=== PATIENT | female | born 1965 | race Caucasian/White ===

== ENCOUNTER 2016-05-24 08:22 | Day surgery (SDC) | payer OTHER ==
[2016-05-24] MEDS ORDERED: LACTATED RINGERS 1,000 ML IV ONE ×2 (09:10→09:49)
[2016-05-24] MEDS ORDERED: fentaNYL 250 MCG/5 ML VIAL IVP ONE (10:00)
[2016-05-24] MEDS ORDERED: MIDAZOLAM 2 MG/2 ML VIAL IVP ONE (10:00)
== END 2016-05-24 08:23 | disposition home or self-care (01) ==
PROC: 0DJD8ZZ Inspection of Lower Intestinal Tract, Via Natural or Artificial Opening Endoscopic (ICD-10-PCS; principal; 2016-05-24 09:30)
DX: Z12.11 Encounter for screening for malignant neoplasm of colon (principal); K64.8 Other hemorrhoids
CPT/HCPCS: 45378; J3010; J7120

== ENCOUNTER 2018-11-28 14:59 | Outpatient (CLI) | payer OTHER ==
[2018-11-28 15:35] VITALS: BP 110/60
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
== END 2018-11-28 15:00 | disposition home or self-care (01) ==
LOC: SC 14:59
PROVIDERS: ATTEND Internal Medicine Pulmonary Disease
DX: R06.83 Snoring (principal); R06.81 Apnea, not elsewhere classified; G47.8 Other sleep disorders; G47.10 Hypersomnia, unspecified
CPT/HCPCS: 99203; 99212

== ENCOUNTER 2019-01-03 20:24 | Outpatient (CLI) | payer OTHER | END 2019-01-03 20:25 | disposition home or self-care (01) | LOC: SC 20:24 | PROVIDERS: ATTEND Internal Medicine Pulmonary Disease | DX: G47.33 Obstructive sleep apnea (adult) (pediatric) (principal) | CPT/HCPCS: 95811 ==

== ENCOUNTER 2019-01-23 15:01 | Outpatient (CLI) | payer OTHER ==
--- NOTE | 2019-01-23 15:23 | SLEEP CARE CONSULTATION ---
Information from patient questionnaire entered by Petra Vasquez. I have reviewed and concur with the information entered by Petra Vasquez. This document represents the service I personally performed and the decisions made by me, Nicole Hay MD, [facility]. History of Present Illness Initial [place] Sleepiness Scale score: 16 Current [place] Sleepiness Scale score: 15 Additional HPI information: HPI: returned for follow up of the sleep study she had on 01/03/19. The polysomnography shows the following: The quality of the study is good. CPAP was initiated 190.2 minutes into the study and titrated up from 4 cmH2O and titrated up to CPAP at 8 cmH2O. DIAGNOSTIC: The patient had slightly reduced sleep efficiency due to frequent awakenings after the sleep onset. The sleep architecture was abnormal for sleep fragmentation and lack of REM and slow wave sleep (N3). Respiratory monitoring showed extremely severe obstructive sleep apnea-hypopnea (AHI = 112.2) associated with frequent arousals, oxyhemoglobin desaturation and mild hypoxia (jc oxygen saturation of 84%). The respiratory events occurred independently of sleep stage and body position. Snoring was loud in intensity. There was mild periodic limb movement of sleep. THERAPEUTIC: CPAP at 7 cmH2O appeared to be optimal (AHI of 0 per hour on the pressure). There was supine REM sleep on the pressure. Oxygen saturation was normal. Lower CPAP settings allowed a few residual respiratory events. The patient appeared to have tolerated positive airway pressure therapy very well. The patients sleep efficiency was normal. The sleep architecture was significant for REM rebound. There was no significant periodic limb movement of sleep. Cardiac rhythm was normal sinus rhythm without significant arrhythmia. No abnormal behavior (parasomnia) observed during the night. The patient was informed of these findings. I explained to her the pathophysiology behind obstructive sleep apnea. We then spent quite a bit of time discussing different treatment options. For mild obstructive sleep apnea, surgery and oral appliance are alternatives to nasal CPAP therapy but in moderate or severe cases, nasal CPAP is the most effective and reliable treatment. After some discussion, she opted to go with the nasal CPAP therapy. I explained to her how CPAP machine works and what to expect when using the machine. She is actually quite familiar with the treatment because her uses a CPAP. Allergies and Home Medications Drug allergies reviewed: Yes Home medication list reviewed: Yes Review of Systems Review of systems same as previous: Yes Physical Exam Height: 5 ft 6 in Weight: 260 lb Body Mass Index: 41.9 BMI Classification: Obesity Class 3 Impression and Plan IMPRESSION: 1. Obstructive Sleep Apnea-Hypopnea Syndrome, extremely severe, associated with mild hypoxemia and sleep fragmentation. Obviously this is the cause of the patients symptoms of unrefreshed sleep, and excessive daytime sleepiness. As mentioned above, the patient will be started on autoCPAP set at 5 - 8 cmH2O. I anticipate good treatment compliance. PLAN: 1. Prescription made for an autoCPAP with heated humidifier and related supplies. 2. Attempt to lose weight. 3. Be careful when driving until her sleepiness resolves completely on nasal CPAP therapy. 4. Return in one month for follow up. I will assess her response and compliance at that time. I spent 100% of this 20 minute visit face to face with the patient with greater than 50% of this was spent time counseling the patient and coordination of care.
== END 2019-01-23 15:02 | disposition home or self-care (01) ==
LOC: SC 15:01
PROVIDERS: ATTEND Internal Medicine Pulmonary Disease
DX: G47.33 Obstructive sleep apnea (adult) (pediatric) (principal); E66.9 Obesity, unspecified; Z68.41 Body mass index [BMI] 40.0-44.9, adult
CPT/HCPCS: 99212; 99213

== ENCOUNTER 2019-05-02 13:29 | Outpatient (CLI) | payer OTHER ==
[2019-05-02 14:27] VITALS: BP 130/78
--- NOTE | 2019-05-02 14:27 | SLEEP CARE CONSULTATION ---
Information from patient questionnaire entered by Dona Castellanos. I have reviewed and concur with the information entered by Dona Castellanos. This document represents the service I personally performed and the decisions made by me, Veena Paredes, RN, MSN, PLATE COLORER. History of Present Illness Previous diagnosis: Extremely Severe, Obstructive Sleep Apnea-Hypopnea Syndrome AHI: 112.2 Reason for follow up: first compliance Equipment type: CPAP Equipment obtained from: [email or web address] Mask style: Nasal (Dreamwear nasal) Mask brand: Respironics Backup mask available: Yes Last cushion change: a month ago CPAP Compliance Data - Data Reviewed with Patient Average duration of nightly device use: 6.45 Compliance rate %: 100 Current pressure setting (cmH2O): 5-8 Humidity settin Heated hose settin Average residual AHI: 2.2 Average large leak: 0 Subjective Patient concerns: reports: mask leak noise (just initially or sometimes on her side ). denies: aerophagia, mask discomfort, air blowing in eyes, condensation in mask/hose, nasal congestion, dry mouth, nose, throat, epistaxis, other Observed to snore while using device: No Current pressure setting perceived as: comfortable On therapy, patient: reports: sleeping better, awakening more refreshed, being more awake and alert during the day, more rested overall. denies: drowsiness while driving Initial [place] Sleepiness Scale score: 16 Current [place] Sleepiness Scale score: 5 Allergies and Home Medications Known drug allergies: Yes Home medication list reviewed: Yes ( no changes) Allergy and home medication list: atenolol 50mg daily Atprvastatin 10mg daily Review of Systems Review of systems same as previous: Yes Physical Exam Blood Pressure: 130/78 Cuff size: long Heart Rate: 71 O2 Saturation: 97 Height: 5 ft 6 in ( ) Weight: 270 lb 6.4 oz Body Mass Index: 43.6 BMI Classification: Obesity Class 3 Impression and Plan 1. Obstructive Sleep Apnea-Hypopnea Syndrome, extremely severe, with good treatment compliance and good apnea control. On CPAP therapy, the patient has better sleep quality and is more rested overall. To reduce mask leaks while sleeping on her side, I showed her a CPAP pillow. This and other styles can be bought online. I also discussed the importance of regularly changing CPAP mask cushion to maintain seal of mask. In addition, I discussed the importance of changing her filter in response to her questions. Currently patients BMI is 41.9 obesity class. Obesity increases the risk of apnea, CPAP pressure requirements and overall health risks especially cardiovascular and diabetes. Thus patient is advised to lose weight. Weight loss can be done with reducing portion size, refined foods and balancing content with vegetables, fruit and protein. A diet consultation can be helpful in achieving optimal weight loss goals. The BMI chart was reviewed. Patient encouraged to discuss their weight loss goals with their PCP and consider a referral to a tool lapper hand. The patient's auto CPAP pressure should accommodate for future weight loss. Symptoms to report for additional pressure adjustment discussed. Patient's apnea severity and rationale for treatment to reduce apnea, improve sleep quality and reduce cardiovascular and cerebrovascular events was reviewed. I also reviewed the benefit of consistent device use of CPAP for hypertension. * Continue CPAP pressure at 5-8 cmH2O * consider CPAP pillow * Change mask cushions more frequently. * Notify me if snoring with mask or feeling that the pressure is too much or too little * Attempt to lose weight * Call this office if any problems using CPAP * Return for follow up in 3 months , or sooner if concerns arise Time Spent with Patient (minutes): 30 I spent 100% of this visit face to face with the patient with greater than 50% of this was spent time counseling the patient and coordination of care.
== END 2019-05-02 13:30 | disposition home or self-care (01) ==
LOC: SC 13:29
PROVIDERS: ATTEND Nurse Practitioner Family
DX: G47.33 Obstructive sleep apnea (adult) (pediatric) (principal); E66.9 Obesity, unspecified; Z68.41 Body mass index [BMI] 40.0-44.9, adult
CPT/HCPCS: 99212; 99214

== ENCOUNTER 2019-10-31 15:14 | Outpatient (CLI) | payer OTHER ==
[2019-10-31 16:12] VITALS: BP 130/90
--- NOTE | 2019-10-31 16:12 | SLEEP CARE CONSULTATION ---
Information from patient questionnaire entered by Petra Vasquez. I have reviewed and concur with the information entered by Petra Vasquez. This document represents the service I personally performed and the decisions made by me, Veena Paredes, RN, MSN, ENERGY ENGINEER. History of Present Illness Service Date and Time: 10/31/2019 1514 Previous diagnosis: Extremely Severe, Obstructive Sleep Apnea-Hypopnea Syndrome AHI: 112.2 Reason for follow up: other (5 month) Equipment type: CPAP Equipment obtained from: [facility] (getting supplies as needed) Mask style: Nasal (Dreamwear) Backup mask available: Yes (old mask ) Last cushion change: yesterday Prior sleep studies: Yes Year and Where: [facility] 2018 Type of Sleep Study: Polysomnography CPAP Compliance Data - Data Reviewed with Patient Average duration of nightly device use: 7h 1m Compliance rate %: 100 Current pressure setting (cmH2O): 5-8 Humidity settin Heated hose settin Average residual AHI: 1.0 (90% pressure average 8cmh20) Average large leak: 2m 19s Subjective Patient concerns: denies: aerophagia, mask discomfort, air blowing in eyes, mask leak noise, condensation in mask/hose, nasal congestion, dry mouth, nose, throat, epistaxis, other Observed to snore while using device: No Current pressure setting perceived as: comfortable On therapy, patient: reports: sleeping better, awakening more refreshed, being more awake and alert during the day, more rested overall. denies: drowsiness while driving Initial [place] Sleepiness Scale score: 16 Current [place] Sleepiness Scale score: 6 Allergies and Home Medications Known drug allergies: No Home medication list reviewed: No (no changes) Review of Systems Review of systems same as previous: Yes Physical Exam Blood Pressure: 130/90 (has monitor but does not monitor ) Cuff size: long Heart Rate: 66 O2 Saturation: 96 Height: 5 ft 6 in Weight: 264 lb 1.6 oz Weight change since last visit: lost 6 pounds Body Mass Index: 42.6 BMI Classification: Morbidly Obese Impression and Plan 1. Obstructive Sleep Apnea-Hypopnea Syndrome, extremely severe, with good treatment compliance and good apnea control. On CPAP therapy, the patient has better sleep quality and is more rested overall. Patient very pleased with benefit of treatment. She has started to lose weight. Currently patients BMI is 42.6 obesity class Morbidly Obese. Obesity increases the risk of apnea, CPAP pressure requirements and overall health risks especially cardiovascular and diabetes. Thus patient is advised to continue to lose weight. A diet consultation can be helpful in achieving optimal weight loss goals. The BMI chart was reviewed. Patient encouraged to discuss their weight loss goals with their PCP and consider a referral to a display maker. The patient's CPAP pressure range should accommodate some weight loss. Symptoms to report for additional pressure adjustment discussed. Patient's apnea severity and rationale for treatment to reduce apnea, improve sleep quality and reduce cardiovascular and cerebrovascular events was reviewed. I also reviewed the benefit of consistent device use of CPAP for hypertension. 2. Elevated blood pressure - slight elevation of blood pressure noted today. Patient advised of risks of uncontrolled hypertension and to resume monitoring blood pressure regularly and dicuss guidelines with her PCP. Guidelines for urgent evaluation of blood pressure reviewed. * Continue auto CPAP pressure at 5-8 cmH2O * Monitor blood pressure and follow up with PCP if remains elevated * Notify me if snoring with mask or feeling that the pressure is too much or too little * Continue to lose weight * Call this office if any problems using CPAP * Return for follow up in 6 months , or sooner if concerns arise Visit Type: In Office Time Spent with Patient (minutes): 25 Provider Statement: I spent 100% of the Face to Face Visit with the patient with greater than 50% spent counseling the patient and coordination of care.
== END 2019-10-31 15:15 | disposition home or self-care (01) ==
LOC: SC 15:14
PROVIDERS: ATTEND Nurse Practitioner Family
DX: G47.33 Obstructive sleep apnea (adult) (pediatric) (principal); R03.0 Elevated blood-pressure reading, without diagnosis of hypertension; E66.01 Morbid (severe) obesity due to excess calories; Z68.41 Body mass index [BMI] 40.0-44.9, adult
CPT/HCPCS: 99212; 99214

== ENCOUNTER 2020-03-07 08:48 | Outpatient (CLI) | payer OTHER ==
--- NOTE | 2020-03-10 14:05 | Mammography Report ---
BILATERAL DIGITAL SCREENING MAMMOGRAM 3D/2D: 03/07/2020 CLINICAL: Routine screening. Comparison is made to exams dated: 02/12/2015 mammogram - [facility], 08/15/2012 ma mmogram, 07/30/2011 mammogram - [facility], 06/16/2010 mammogram, and 05/28/2009 mammogram - [facility]. There are scattered fibroglandular elements in both breasts. No significant masses, calcifications, or other findings are seen in either breast. There has been no significant interval change. IMPRESSION: NEGATIVE There is no mammographic evidence of malignancy. A 1 year screening mammogram is recommended. This exam was interpreted at Station ID: [id number]. NOTE: For mammograms, a report in lay terms will be sent to the patient. Approximately 15% of breast malignancies will not be visualized mammographically. In the management of a palpable breast mass, a negative mammogram must not discourage biopsy of a clinically suspicious lesion. Electronically Signed By: Jefe Benitez M.D. at/liyarad:03/07/2020 12:55:27 ACR BI-RADS Category 1: Negative 3341F PARENCHYMAL PATTERN: (A) - The breast(s) demonstrate(s) scattered fibroglandular densities. BI-RADS CATEGORY: (1) - 1 RECOMMENDATION: (ANNUAL) - Recommend routine annual screening mammography. [id number] 1 year screening LATERALITY: (B)
== END 2020-03-07 08:49 | disposition home or self-care (01) ==
LOC: DI.N 08:48
DX: Z12.31 Encounter for screening mammogram for malignant neoplasm of breast (principal)
CPT/HCPCS: 77063; 77067

== ENCOUNTER 2020-06-06 09:01 | Outpatient (CLI) | payer OTHER ==
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
== END 2020-06-06 09:02 | disposition home or self-care (01) ==
LOC: SC 09:01
PROVIDERS: ATTEND Nurse Practitioner Family
DX: G47.33 Obstructive sleep apnea (adult) (pediatric) (principal); E66.01 Morbid (severe) obesity due to excess calories; Z68.41 Body mass index [BMI] 40.0-44.9, adult
CPT/HCPCS: 99212

== ENCOUNTER 2020-08-04 07:00 | Outpatient (CLI) | payer OTHER ==
--- NOTE | 2020-08-04 10:09 | XRAY Report ---
PROCEDURE: Knee 4 View RT INDICATIONS: R KNEE PX TECHNIQUE: 4 views of the mild lateral compartment joint space narrowing, moderate lateral facet pat ellofemoral joint osteoarthritic joint space narrowing also. knee(s) were acquired. COMPARISON: None. FINDINGS: Bones: No fractures or dislocations. No suspicious bony lesions. Soft tissues: No joint effusion. No suspicious soft tissue calcifications. IMPRESSION: No trauma found. Degenerative osteoarthritis is mild at the lateral compartment and mode rate at the lateral facet of the patellofemoral joint. Reviewed by: Sandro Cuello MD on 08/04/2020 10:08 AM PDT Approved by: Sandro Cuello MD on 08/04/2020 10:08 AM PDT Station ID: [id number]
== END 2020-08-04 23:59 | disposition home or self-care (01) ==
LOC: DI.N 07:00
PROVIDERS: ATTEND Physician Assistant
DX: M17.11 Unilateral primary osteoarthritis, right knee (principal)

== ENCOUNTER 2022-02-10 08:41 | Outpatient (CLI) | payer OTHER ==
[2022-02-10 09:27] VITALS: BP 150/100
--- NOTE | 2022-02-10 09:27 | SLEEP CARE CONSULTATION ---
Information from patient questionnaire entered by Kristi Eisenberg. I have reviewed and concur with the information entered by Kristi Eisenberg. This document represents the service I personally performed and the decisions made by me, Kayla Parsons ARNP. History of Present Illness Service Date and Time: 02/10/2022 0841 Previous diagnosis: Extremely Severe, Obstructive Sleep Apnea-Hypopnea Syndrome AHI: 112.2 (in 2018) Reason for follow up: annual (LAST SEEN 05/2020 DREAM STAION) Equipment type: CPAP (DREAM STATION) Equipment obtained from: Other ([facility]) Mask style: Nasal Backup mask available: No (will keep old mask when replaced) Prior sleep studies: Yes Year and Where: 2018 - [facility] HPI additional information: GAYATRI ZENG was diagnosed to have extremely severe, AHI 112.2, obstructive sleep apnea-hypopnea syndrome and returned today for CPAP therapy annual follow- up. Sleep Study - Results Prior sleep studies: Yes Year and Where: 2018 - [facility] CPAP Compliance Data - Data Reviewed with Patient Average duration of nightly device use: 6 hours 49 mins Compliance rate %: 30 (01/22 days used) Current pressure setting (cmH2O): 5-8 Average residual AHI: 2 Central apnea: 0.1 Obstructive apnea: 0.7 Compliance data discussion: She was not using her Dreamstation from February 2021 to when she got a replacement from [employer]. She now has a Dreamstation 2. Patient used her machine days used because of recall on her CPAP. Subjective Missed days of use due to: reports: illness (sinusitis and dental issues), other (recall on machine) Patient concerns: reports: nasal congestion, epistaxis. denies: aerophagia, mask discomfort, air blowing in eyes, mask leak noise, condensation in mask/hose, dry mouth, nose, throat Observed to snore while using device: No Current pressure setting perceived as: comfortable On therapy, patient: reports: sleeping better, awakening more refreshed, being more awake and alert during the day, more rested overall. denies: drowsiness while driving Initial [place] Sleepiness Scale score: 16 (in 2019) Current [place] Sleepiness Scale score: 12 (02/10/2022) Allergies and Home Medications Drug allergies reviewed: Yes (NKDA) Home medication list reviewed: Yes (no changes) Review of Systems Review of systems same as previous: Yes (no changes) Physical Exam Vital signs obtained and entered by: KRISTI Maza MA Blood Pressure: 150/100 (LEFT ARM ) Cuff size: regular Heart Rate: 71 O2 Saturation: 97 Height: 5 ft 6 in Weight: 258 lb 12.8 oz Body Mass Index: 41.8 BMI Classification: Morbidly Obese Impression and Plan 1. Obstructive Sleep Apnea-Hypopnea Syndrome, extremely severe, with poor treatment compliance and good apnea control. On CPAP therapy, the patient has better sleep quality and is more rested overall. Patient has significant improvement of their sleep apnea and are satisfied with current CPAP therapy. Patient had not been using her Dreamstation that was on the [employer] recall. She got a new Dreamstation 2 but had some concerns about sinusitis and some epistaxis that happened. We discuss cleaning her machine regularly and her masks. She had not been as diligent with cleaning her water chamber and will start doing this. She will use the humidifier to keep nasal passages moist and reduce dryness and epistaxis risk. Patient's apnea severity and rationale for treatment to reduce apnea, improve sleep quality and reduce cardiovascular and cerebrovascular events was reviewed. I also reviewed the benefit of consistent device use of CPAP for hypertension. I will have her come back in 1-2 months to recheck compliance. 2. Obesity, unspecified. Currently patients BMI is 41.8. Obesity increases the risk of apnea, CPAP pressure requirements and overall health risks especially cardiovascular and diabetes. Thus patient is advised to continue to try to lose weight. 3. Elevated blood pressure in patient with hypertension. Patient blood pressure 150/100 in the office today. She states no chest pain, shortness of breath, headaches or dizziness. She states she has some things on her mind and other doctor's visits which may be causing some anxiety and increased blood pressure. * Continue auto CPAP pressure at 5-8 cmH2O * Update supplies * Notify me if snoring with mask or feeling that the pressure is too much or too little * Attempt to lose weight * Call this office if any problems using CPAP * Return for follow up in 1-2 months, or sooner if concerns arise Counseling Topics: Spare mask, Weight loss health impact Visit Type: In Office Time Spent with Patient (minutes): 23 Provider Statement: I spent 100% of the Face to Face Visit with the patient with greater than 50% spent counseling the patient and coordination of care.
== END 2022-02-10 08:42 | disposition home or self-care (01) ==
LOC: SC 08:41
PROVIDERS: ATTEND Nurse Practitioner Family
DX: G47.33 Obstructive sleep apnea (adult) (pediatric) (principal); E66.01 Morbid (severe) obesity due to excess calories; Z68.41 Body mass index [BMI] 40.0-44.9, adult; I10 Essential (primary) hypertension
CPT/HCPCS: 99212; 99213

== ENCOUNTER 2023-06-30 09:56 | Outpatient (CLI) | payer OTHER ==
--- NOTE | 2023-06-30 10:41 | Sleep Patient Instructions ---
Sleep Center Visit Summary - Patient Visit Information Reason for Visit: Annual follow-up - Patient Instructions Additional Instructions: You will continue with CPAP therapy with pressure set at 5-8 cmH2O. A supply prescription will be updated with your DME. We encourage you to continue to try to lose weight. Please follow up with the sleep care office in 1 year. - Clinic Information Contact: [facility] [address] [place] [address] [email or web address] T: [phone]
--- NOTE | 2023-06-30 10:46 | SLEEP CARE CONSULTATION ---
Information from patient questionnaire entered by Kristi Eisenberg. I have reviewed and concur with the information entered by Kristi Eisenberg. This document represents the service I personally performed and the decisions made by me, Kayla Parsons ARNP. History of Present Illness Service Date and Time: 06/30/2023 0956 Previous diagnosis: Extremely Severe, Obstructive Sleep Apnea-Hypopnea Syndrome AHI: 112.2 (in 2018) Reason for follow up: annual (LAST SEEN 01/2022) Equipment type: CPAP (DREAM STATION 2, s/u 03/01/2019) Equipment obtained from: Other ([facility]; getting supplies) Mask style: Nasal Backup mask available: Yes Last cushion change: rotate cushions, 6 cushions Prior sleep studies: Yes Year and Where: 2018 - [facility] HPI additional information: GAYATRI ZENG was diagnosed to have extremely severe, AHI 112.2, obstructive sleep apnea-hypopnea syndrome and returned today for BiPAP therapy annual follow-up. Sleep Study - Results Prior sleep studies: Yes Year and Where: 2019 - [facility] CPAP Compliance Data - Data Reviewed with Patient Average duration of nightly device use: 9 HRS 48 MINS 7 SECS Compliance rate %: 98.1 (06/27/22-06/26/23; 358/365 days used) Current pressure setting (cmH2O): 5-8 Average residual AHI: 1.9 Central apnea: 0.1 Obstructive apnea: 0.8 Hypopnea: 1.7 Average large leak: 7 mins 3 secs Subjective Missed days of use due to: reports: travel (airport took CPAP out of suitcase and was left behind) Patient concerns: reports: other (swollen glands left side). denies: aerophagia, mask discomfort, air blowing in eyes, mask leak noise, condensation in mask/hose, nasal congestion, dry mouth, nose, throat, epistaxis Observed to snore while using device: No Current pressure setting perceived as: comfortable On therapy, patient: reports: sleeping better, awakening more refreshed, being more awake and alert during the day, more rested overall. denies: drowsiness while driving Initial [place] Sleepiness Scale score: 16 (in 2019) Current [place] Sleepiness Scale score: 8 Allergies and Home Medications Known drug allergies: No Drug allergies reviewed: Yes Home medication list reviewed: Yes (no changes) Allergy and home medication list: Allergies No Known Drug Allergies Allergy (Verified 06/28/23 13:57) Review of Systems Review of systems same as previous: Yes (no changes) Physical Exam Vital signs obtained and entered by: KAYLA VITALE Blood Pressure: 138/92 Cuff size: regular (left arm) Heart Rate: 65 O2 Saturation: 98 Height: 5 ft 6 in Weight: 264 lb 3.2 oz Body Mass Index: 42.6 BMI Classification: Morbidly Obese Impression and Plan 1. Obstructive Sleep Apnea-Hypopnea Syndrome, extremely severe, with good treatment compliance and good apnea control. On CPAP therapy, the patient has better sleep quality and is more rested overall. Patient is only gapping use was because the airport [place]. She resumed as soon as she was able to get it return to her. Patient has significant improvement of their sleep apnea and is satisfied with current CPAP therapy. Patient denies problems with oral dryness, nasal congestion, epistaxis, skin irritation or aerophagia. We will follow-up with her next year. Patient's apnea severity and rationale for treatment to reduce apnea, improve sleep quality and reduce cardiovascular and cerebrovascular events was reviewed. I also reviewed the benefit of consistent device use of CPAP for hypertension. 2. Obesity, unspecified. Currently patients BMI is 42.6. Obesity increases the risk of apnea, CPAP pressure requirements and overall health risks especially cardiovascular and diabetes. Thus patient is advised to lose weight. * Continue Auto CPAP pressure at 5-8 cmH2O * Update supply prescription * Notify me if snoring with mask or feeling that the pressure is too much or too little * Attempt to lose weight * Call this office if any problems using CPAP * Return for follow up in 12 months, or sooner if concerns arise Counseling Topics: Spare mask, Weight loss health impact Prescriptions: Device supplies Follow up with Sleep Care in: 1 year Visit Type: In Office Time Spent with Patient (minutes): 22 Provider Statement: I spent 100% of the Face to Face Visit with the patient with greater than 50% spent counseling the patient and coordination of care.
[2023-06-30 10:50] VITALS: BP 138/92; O2SAT 98
== END 2023-06-30 09:57 | disposition home or self-care (01) ==
LOC: SC 09:56
PROVIDERS: ATTEND Nurse Practitioner Family
DX: G47.33 Obstructive sleep apnea (adult) (pediatric) (principal); E66.01 Morbid (severe) obesity due to excess calories; Z68.41 Body mass index [BMI] 40.0-44.9, adult
CPT/HCPCS: 99212; 99213